=== PATIENT | male | born 1965 | race Caucasian/White ===

== ENCOUNTER 2016-12-11 13:05 | Inpatient (IN) | payer MEDICAID ==
[~2016-12-11] VITALS: Ht 162.6 cm; Wt 88.0 kg
[2016-12-11 13:24] VITALS: BP 137/80
--- NOTE | 2016-12-11 13:30 | NUR ---
PATIENT TO ER BED 1.
--- NOTE | 2016-12-11 13:34 | NUR ---
PATIENT PRESENTS TO ED WITH PT REFERRED TO ER BY PCP FOR EVALUATION OF SOB AND EDEMA TO KATY LEGS. PT STATES HE HAD PNEUMONIA 5 MONTHS AGO. HX GERD AND CHRONIC BACK PAIN. DENIES N/V/D; SKIN IS PINK/WARM/DRY; AAOX4 WITH EVEN AND STEADY GAIT; LUNGS DIMISHED TO LOWER BL LOBES, BL; HR EVEN AND REGULAR; PT DENIES ANY FEVER, CP,AT THIS TIME; PATIENT STATES PAIN OF 8/10 AT THIS TIME; VSS; PATIENT POSITIONED FOR COMFORT; HOB ELEVATED; BEDRAILS UP X2; BED DOWN. ER MD MADE AWARE OF PT STATUS.
--- NOTE | 2016-12-11 13:49 | NUR ---
Patient being evaluated by physician at bedside.
[2016-12-11] MEDS ORDERED: ASPIRIN 325 MG TAB PO ONE (15:00)
[2016-12-11] MEDS ORDERED: FUROSEMIDE 20 MG/2 ML VIAL IVP ONE (15:00)
[2016-12-11] MEDS ORDERED: CALCIUM CARB 600 MG TAB PO STA (15:10)
[2016-12-11] MEDS ORDERED: HEPARIN PER PHARMACY MC PRN ×2 (15:10→15:35)
[2016-12-11] MEDS ORDERED: hePARIN / DEXT 5% PREMIX 250 ML IV ONE (15:10)
[2016-12-11] MEDS ORDERED: MORPHINE SULFATE 2 MG/ML SYR IVP PRN (15:30)
[2016-12-11] MEDS ORDERED: HYDROcodone/APAP 5/325 MG 1 TAB TAB PO PRN (15:30)
[2016-12-11] MEDS ORDERED: ONDANSETRON 4 MG/2 ML VIAL IVP PRN (15:30)
[2016-12-11] MEDS ORDERED: DOCUSATE SODIUM 100 MG GELCAP PO PRN (15:30)
[2016-12-11] MEDS ORDERED: ACETAMINOPHEN 325 MG TAB PO PRN (15:30)
[2016-12-11] MEDS: NACL 0.9% 1,000 ML IV SCH (15:30)
[2016-12-11] MEDS ORDERED: hePARIN / DEXT 5% PREMIX 250 ML IV SCH (15:35)
--- NOTE | 2016-12-11 16:31 | NUR ---
Patient will be admitted to care of DR. PENA. Admited to TELE Will go to room 111B, Belongings list completed. Report to ESAU LONGO.
[2016-12-11 17:00] VITALS: BP 119/82
--- NOTE | 2016-12-11 17:00 | NUR ---
PATIENT ARRIVED FROM THE ER. PATIENT AWAKE, ALERT ORIENTED AND AMBULATORY. NO S/S OF DISTRESS NOTED. PATIENT BREATHING ON ROOM AIR. NO SOB. NO C/O PAIN AT THIS TIME. PATIENT ON HEPARIN DRIP RUNNING AT 1000UNITS/ML. IV LINE TO THE RIGHT HAND INTACT AND ASYMPTOMATIC. PATIENT PLACED ON TELE MONITORING. BED LOWERED WITH CALL LIGHT WITHIN REACH. WILL CONTINUE TO MONITOR
[2016-12-11] MEDS ORDERED: TAMSULOSIN 0.4 MG CAP PO SCH (17:10)
[2016-12-11] MEDS ORDERED: MAG SULF 2000 MG/WATER PREMIX 50 ML IV SCH (17:10)
[2016-12-11] MEDS ORDERED: LISINOPRIL 10 MG TAB PO SCH (17:30)
[2016-12-11] MEDS ORDERED: ATORVASTATIN 20 MG TAB PO SCH (17:35)
[2016-12-11] MEDS: LISINOPRIL 10 MG TAB PO SCH (18:07)
[2016-12-11] MEDS: ATORVASTATIN 20 MG TAB PO SCH (18:07)
[2016-12-11] MEDS ORDERED: METOPROLOL 25 MG TAB PO SCH (18:15)
[2016-12-11] MEDS: METOPROLOL 25 MG TAB PO SCH (18:18)
--- NOTE | 2016-12-11 18:21 | NUR ---
PATIENT EATING DINNER AND WATCHING TELEVISION IN BED. NO S/S OF DISTRESS NOTED
--- NOTE | 2016-12-11 19:19 | NUR ---
PATIENT REPORT GIVEN AT BEDSIDE. ENDORSED CONTINUITY OF CARE TO THE NIGHT NURSE. PATIENT IN STABLE CONDITION
--- NOTE | 2016-12-11 19:20 | NUR ---
RECEIVED REPORT FROM DAYSOKFT NURSE. PT IS AAOX4, AMBULATORY, HAS NO COMPLAIN OF PAIN. ON ROOM AIR, NO S/S OF RESPIRATORY DISTRESS/DISCOMFORT NOTED. IV SITE IS PATENT AND INTACT, ON HEPARIN DRIP, INFUSING WELL. SKIN IS INTACT. PLAN OF CARE DISCUSSED, VERBALIZED UNDERSTANDING. SAFETY MEASURES CHECKED, CALL LIGHT WITHIN REACH. WILL CONTINUE TO MONITOR.
[2016-12-11] MEDS: hePARIN / DEXT 5% PREMIX 250 ML IV SCH ×2 (19:30→23:34)
[2016-12-11 20:00] VITALS: BP 105/68
[2016-12-11] MEDS: CALCIUM CARBONATE 500 MG TAB PO SCH (21:20)
--- NOTE | 2016-12-11 21:21 | NUR ---
DUE MED GIVEN. PATIENT TOLERATED WELL.
--- NOTE | 2016-12-11 23:44 | NUR ---
PAGED DR GIBSON, WAITING FOR CALL BACK TO REPORT CRITICAL VALUE.
--- NOTE | 2016-12-11 23:45 | NUR ---
CALL BACK RECEIVED, SPOKE WITH DR. GIBSON. REPORTED A CRITICAL VALUE OF TROPONIN = 0.224 AND PTT= 71.3. NO NEW ORDERS MADE.
[2016-12-12] VITALS: BP 95/69
--- NOTE | 2016-12-12 03:16 | NUR ---
PT SLEEPING. HAS NO S/S OF RESPIRATORY DISTRESS/DISCOMFORT NOTED. CALL LIGHT WITHIN REACH.
[2016-12-12 04:00] VITALS: BP 102/68
--- NOTE | 2016-12-12 06:57 | NUR ---
RECEIVED A CALL FROM JOLE[employer]. REPORTED A CRITICAL VALUE, APTT= 58.6 PER PROTOCOL NO CHANGE, TROPONIN 0.184, WILL INFORM CHARGE NURSE.
--- NOTE | 2016-12-12 07:30 | NUR ---
ENDORSED REPORT TO DAYSMTFT NURSE. PT IS IN STABLE CONDITION.
--- NOTE | 2016-12-12 07:31 | NUR ---
RECEIVED REPORT FROM QING MCCLOUD. PT IS AAOX4. PT ON ROOM AIR WITH NO S/S OF DISTRESS NOTED. IV TO RIGHT HAND #20 AND LEFT FA #20, PATENT AND INTACT. NO N/V OR PAIN INDICATED. EDEMA NOTED BLE.ALL SAFETY PRECAUTIONS IN PLACE, SIDE RAILSX2, BED IN LOW POSITION, AND CALL LIGHT WITHIN REACH. WILL CONTINUE TO MONITOR.
[2016-12-12 08:00] VITALS: BP 114/82
[2016-12-12] MEDS: CALCIUM CARBONATE 500 MG TAB PO SCH ×2 (08:25→21:15)
[2016-12-12] MEDS: TAMSULOSIN 0.4 MG CAP PO SCH (08:25)
[2016-12-12] MEDS: LISINOPRIL 10 MG TAB PO SCH (08:25)
[2016-12-12] MEDS: PANTOPRAZOLE 40 MG TABEC PO SCH (08:25)
[2016-12-12] MEDS: ECOTRIN 81 MG TABEC PO SCH (08:26)
[2016-12-12] MEDS: METOPROLOL 25 MG TAB PO SCH (08:26)
[2016-12-12] MEDS: ATORVASTATIN 20 MG TAB PO SCH (08:26)
[2016-12-12] MEDS: FUROSEMIDE 20 MG/2 ML VIAL IVP SCH (08:27)
--- NOTE | 2016-12-12 08:32 | NUR ---
PT TOLERATED MEDS WELL. BP 114/82, HR 94. WILL CONTINUE TO MONITOR.
--- NOTE | 2016-12-12 09:05 | NUR ---
PATIENT HAS BEEN SCREENED AND CATEGORIZED MODERATE NUTRITION RISK. PATIENT WILL BE SEEN WITHIN 3-5 DAYS OF ADMISSION. 12/14/16-12/16/[address]
--- NOTE | 2016-12-12 10:58 | NUR ---
PT RESTING AND WATCHING TV. NO DISTRESS NOTED.
[2016-12-12] MEDS: NACL 0.9% 1,000 ML IV SCH (11:13)
[2016-12-12 12:00] VITALS: BP 114/78
--- NOTE | 2016-12-12 12:21 | NUR ---
PTT 54.9, NO CHANGE IN RATE. PTT TO BE ORDERED Q24HR.
--- NOTE | 2016-12-12 13:11 | NUR ---
TALKED TO DR KARSTEN MD AWARE OF PT'S MAGNESIUM AT 1.4
[2016-12-12] MEDS ORDERED: MAG SULF 2000 MG/WATER PREMIX 50 ML IV SCH (13:16)
[2016-12-12] MEDS: hePARIN / DEXT 5% PREMIX 250 ML IV SCH (13:21)
--- NOTE | 2016-12-12 13:33 | NUR ---
PT TOLERATED MEDS WELL. WILL CONTINUE TO MONITOR.
--- NOTE | 2016-12-12 14:00 | NUR ---
PT WATCHING TELEVISION, NO DISTRESS NOTED.
[2016-12-12 16:00] VITALS: BP 108/70
--- NOTE | 2016-12-12 16:35 | NUR ---
PT RESTING WITH NO DISTRESS NOTED.
--- NOTE | 2016-12-12 17:04 | NUR ---
PT RESTING AND WATCHING TV. NO DISTRESS NOTED.
--- NOTE | 2016-12-12 19:29 | NUR ---
ENDORSED CARE TO QNIG ROSALES. PT IN STABLE CONDITION.
--- NOTE | 2016-12-12 19:30 | NUR ---
RECEIVED REPORT FROM DAY SHIFT RN PATIENT IS AAOX4 RESTING IN BED, ON ROOM AIR, NO SOB OR SIGN OF DISTRESS AT THIS TIME, PATIENT HAS IV TO RH 20G WITH HEPARIN INFUSING WELL AT 900U/H AND IV TO LFA 20G PATENT AND INTACT, SKIN IS INTACT, DISCUSSED PLAN OF CARE WITH PATIENT, PATIENT VERBALIZED UNDERSTANDING, SAFETY MEASURES CHECKED, CALL LIGHT WITHIN REACH. WILL CONTINUE TO MONITOR.
[2016-12-12 20:00] VITALS: BP 107/69
[2016-12-12] MEDS: CARVEDILOL 3.125 MG TAB PO SCH (21:00)
--- NOTE | 2016-12-12 21:30 | NUR ---
PM MEDS GIVEN PATIENT TOLERATED WELL, COREG NON ADMINISTERED DT LOW BP, CALL LIGHT WITHIN REACH. WILL CONTINUE TO MONITOR.
[2016-12-13] VITALS: BP 103/64
--- NOTE | 2016-12-13 00:10 | NUR ---
PATIENT SLEEPING, NO SOB OR SIGN OF DISTRESS AT THIS TIME, CALL LIGHT WITHIN REACH. WILL CONTINUE TO MONITOR.
--- NOTE | 2016-12-13 02:15 | NUR ---
PATIENT SLEEPING, NO SOB OR SIGN OF DISTRESS AT THIS TIME, CALL LIGHT WITHIN REACH WILL CONTINUE TO MONITOR.
[2016-12-13 04:00] VITALS: BP 108/68
--- NOTE | 2016-12-13 04:15 | NUR ---
PATIENT RESTING IN BED, NO SOB OR SIGN OF DISTRESS AT THIS TIME, CALL LIGHT WITHIN REACH. WILL CONTINUE TO MONITOR
--- NOTE | 2016-12-13 06:30 | NUR ---
PATIENT SLEEPING, NO SIGN OF DISTRESS AT THIS TIME, CALL LIGHT WITHIN REACH. WILL CONTINUE TO MONITOR.
--- NOTE | 2016-12-13 07:29 | NUR ---
ENDORSED PATIENT TO DAY SHIFT RN AT BEDSIDE, PATIENT IN STABLE CONDITION.
--- NOTE | 2016-12-13 07:30 | NUR ---
RECEIVED REPORT FROM QING ROSALES. PT IS AAOX4, PT ON ROOM AIR WITH NO S/S OF DISTRESS NOTED. IV TO RIGHT HAND #20 AND LEFT FA #20, PATENT AND INTACT. SKIN INTACT. NO N/V OR PAIN INDICATED. ALL SAFETY PRECAUTIONS IN PLACE, SIDE RAILSX2, BED IN LOW POSITION, AND CALL LIGHT WITHIN REACH. WILL CONTINUE TO MONITOR.
[2016-12-13 08:00] VITALS: BP 109/78
[2016-12-13] MEDS ORDERED: CALCIUM ACETATE 667 MG TAB PO SCH (08:00)
[2016-12-13] MEDS: ATORVASTATIN 20 MG TAB PO SCH (08:50)
[2016-12-13] MEDS: CALCIUM CARBONATE 500 MG TAB PO SCH (08:50)
[2016-12-13] MEDS: ECOTRIN 81 MG TABEC PO SCH (08:51)
[2016-12-13] MEDS: CARVEDILOL 3.125 MG TAB PO SCH (08:51)
[2016-12-13] MEDS: PANTOPRAZOLE 40 MG TABEC PO SCH (08:52)
[2016-12-13] MEDS: LISINOPRIL 10 MG TAB PO SCH (08:52)
[2016-12-13] MEDS: TAMSULOSIN 0.4 MG CAP PO SCH (08:52)
[2016-12-13] MEDS: FUROSEMIDE 20 MG/2 ML VIAL IVP SCH (08:52)
--- NOTE | 2016-12-13 08:56 | NUR ---
BP 106/69, HR 99. TALKED TO DR KARSTEN MD AWARE OF PT LOW BP. PER MD HELD LISINOPRIL AND ADMINISTER ALL MORNING MEDICATION. PT TOLERATED MEDS WELL. WILL CONTINUE TO MONITOR.
[2016-12-13] MEDS ORDERED: SPIRONOLACTONE 25 MG TAB PO SCH (09:00)
--- NOTE | 2016-12-13 09:22 | NUR ---
HEPARIN DRIP DISCONTINUED.
[2016-12-13] MEDS ORDERED: MAGNESIUM OXIDE 400 MG TAB PO SCH (10:03)
[2016-12-13] MEDS ORDERED: ALDACTONE50 MG PO (10:30)
[2016-12-13] MEDS ORDERED: ZESTRIL10 MG PO (10:30)
[2016-12-13] MEDS ORDERED: COREG3.125 MG PO (10:31)
[2016-12-13] MEDS ORDERED: FLOMAX0.4 MG PO (10:32)
[2016-12-13] MEDS ORDERED: ALDACTONE25 M1 PO (10:32)
[2016-12-13] MEDS ORDERED: CARVEDILOL3.125 MG PO (10:32)
[2016-12-13] MEDS ORDERED: LISINOPRIL10 M1 PO (10:32)
--- NOTE | 2016-12-13 10:53 | NUR ---
PT AMBULATING THROUGH HALLWAY, WILL ADMINISTER MAGNESIUM WHEN PT IS AT ROOM.
--- NOTE | 2016-12-13 11:13 | NUR ---
PT TOLERATED MEDS WELL. WILL CONTINUE TO MONITOR.
[2016-12-13 12:00] VITALS: BP 118/78
--- NOTE | 2016-12-13 12:00 | NUR ---
NO DISTRESS NOTED AT THIS TIME. PT TO BE DISCHARGED.
--- NOTE | 2016-12-13 13:20 | NUR ---
PT HAS BEEN DISCHARGED. ALL PAPERWORK SIGNED. ALL QUESTIONS ANSWERED. ALL BELONGINGS AND PRESCRIPTIONS IN PT POSSESSION. IV DC'ED WITH CANNULA INTACT. WRISTBANDS AND TELE MONITOR REMOVED. NOTIFIED LOADER ENGINEER. PT REFUSED WHEELCHAIR. PT AMBULATED WITH PT'S DAUGHTER AT BEDSIDE OUT OF UNIT. PT AMBULATED WITH STEADY GAIT AND NO DISTRESS. PT IN STABLE CONDITION.
== END 2016-12-13 13:20 | disposition home or self-care (01) | DRG 190 ==
LOC: MED 13:05 → MTU 15:32
PROVIDERS: ADMIT Family Medicine; ATTEND Family Medicine
DX: I21.4 Non-ST elevation (NSTEMI) myocardial infarction (principal); N17.0 Acute kidney failure with tubular necrosis; I50.43 Acute on chronic combined systolic (congestive) and diastolic (congestive) heart failure; E44.0 Moderate protein-calorie malnutrition; I42.0 Dilated cardiomyopathy; E83.42 Hypomagnesemia; E83.51 Hypocalcemia; E11.22 Type 2 diabetes mellitus with diabetic chronic kidney disease; N40.0 Benign prostatic hyperplasia without lower urinary tract symptoms; E78.5 Hyperlipidemia, unspecified; N18.9 Chronic kidney disease, unspecified; I25.10 Atherosclerotic heart disease of native coronary artery without angina pectoris; R74.0 Nonspecific elevation of levels of transaminase and lactic acid dehydrogenase [LDH]; M17.0 Bilateral primary osteoarthritis of knee; E66.9 Obesity, unspecified; Z71.3 Dietary counseling and surveillance; Z68.33 Body mass index [BMI] 33.0-33.9, adult; Z56.0 Unemployment, unspecified